=== PATIENT | female | born 1995 | race Caucasian/White ===

== ENCOUNTER 2021-09-02 12:03 | Outpatient (CLI) | payer BC, SELFPAY ==
[2021-09-02] VITALS (9 sets, daily range): BP systolic 120–139; BP diastolic 71–87; PULSE 80–94; RESP 18; TEMP 36.3; BMI 34.2
[2021-09-02 12:49] LABS: Basophils % 0.2 %; Eosinophils % 0.1 %; Hematocrit 40.4 % (37.0-47.0); Hemoglobin 14.5 g/dL (11.5-15.3); Lymphocytes # 1.2 10^3/uL (0.8-4.8); Lymphocytes % 8.8 %; Mean Corpuscular HGB Conc 35.9 g/dL (30.0-36.0); Mean Corpuscular Hemoglobin 32.4 pg (28.0-34.0); Mean Corpuscular Volume 90.2 fl (81-99); Mean Platelet Volume 11.6 fL (7.4-10.4); Monocytes # 0.4 10^3/uL (0.2-0.9); Monocytes % 2.7 %; Neutrophils # 11.98 10^3/uL (1.8-7.7); Neutrophils % 87.9 %; Nucleated Red Blood Cells % 0 %; Platelet Count 183 10^3/cmm (130-400); Red Blood Count 4.48 10^6/uL (4.1-5.3); Red Cell Distribution Width 12.6 % (12.1-15.1); White Blood Count 13.6 10^3/uL (4.0-10.0)
[2021-09-02 13:05] LABS: Add Urine Culture? No; Bacteria Urine 2+ /hpf; Bilirubin Urine 1+ (Negative); Blood Urine Neg (Negative); Glucose Urine UA Norm (Normal); Ketones Urine Negative (Negative); Leukocyte Esterase Urine 2+ (Negative); Nitrate Urine Negative (Negative); Protein Urine Trace (Negative); Specific Gravity, Urine 1.025 (1.005-1.030); Urine Appearance Hazy (CLEAR); Urine Color Dark Yellow (Yellow); Urobilinogen Urine 1 mg/dL (Negative); pH Urine 5 (5-7)
[2021-09-02 13:10] LABS: Alanine Aminotransferase < 5 U/L (0-33); Albumin Level 3.9 g/dL (3.5-5.2); Alkaline Phosphatase 116 IU/L (35-105); Aspartate Amino Transferase 16 U/L (0-32); Blood Urea Nitrogen 7 mg/dL (6-20); Calcium 9.3 mg/dL (8.5-10.5); Carbon Dioxide 17 mmol/L (22-29); Chloride 102 mmol/L (98-107); Globulin 3.6 g/dL (1.3-4.6); Glomerular Filtration Rate 150.3 mL/min (90-130); Glucose 101 mg/dL (65-115); Osmolality Calculated 278 mOsm/kg (285-295); Sodium 135 mmol/L (136-145); Total Bilirubin 0.3 mg/dL (0.15-1.2); Total Protein 7.5 g/dL (6.6-8.7); Uric Acid 4.5 mg/dL (2.4-5.7)
[2021-09-02 13:22] LABS: Urine Creatinine 295 mg/dL (28-217)
[2021-09-02 13:27] LABS: UPRO/UCREAT Ratio 0.15 mg/mg CR; Urine Protein Random 45 mg/dL
== END 2021-09-02 14:05 | disposition home or self-care (01) ==
LOC: OPOB 12:05 → OBGYN 12:40
PROVIDERS: Visit Provider Family Medicine
DX: O16.9 Unspecified maternal hypertension, unspecified trimester (principal); Z3A.00 Weeks of gestation of pregnancy not specified
CPT/HCPCS: 36415; 59025; 80053; 81001; 82570; 84156; 84550; 85025

== ENCOUNTER 2021-09-06 11:10 | Outpatient (CLI) | payer BC, SELFPAY ==
[2021-09-06 11:23] VITALS: RESP 16
[2021-09-06 11:24] VITALS: BMI 34.7
[2021-09-06 11:26] VITALS: BP 140/94; PULSE 81
[2021-09-06 11:47] VITALS: BP 123/82; PULSE 85
== END 2021-09-06 12:03 | disposition home or self-care (01) ==
LOC: OPOB 11:13 → OBGYN 11:14
PROVIDERS: Visit Provider Family Medicine
DX: O16.9 Unspecified maternal hypertension, unspecified trimester (principal); Z3A.00 Weeks of gestation of pregnancy not specified
CPT/HCPCS: 59025

== ENCOUNTER 2021-09-09 13:08 | Inpatient (IN) | payer BC, MEDICAID, SELFPAY ==
[2021-09-09] VITALS (21 sets, daily range): BP systolic 110–158; BP diastolic 59–88; PULSE 66–109; RESP 16–18; TEMP 36.6–36.7; O2SAT 99–100; BMI 35.4
[2021-09-09 12:52] LABS: Basophils % 0.2 %; Eosinophils # 0.1 10^3/uL (0.0-0.8); Eosinophils % 0.6 %; Hematocrit 41.4 % (37.0-47.0); Hemoglobin 14.7 g/dL (11.5-15.3); Lymphocytes # 2.2 10^3/uL (0.8-4.8); Lymphocytes % 18.1 %; Mean Corpuscular HGB Conc 35.5 g/dL (30.0-36.0); Mean Corpuscular Hemoglobin 32.4 pg (28.0-34.0); Mean Corpuscular Volume 91.2 fl (81-99); Mean Platelet Volume 11.7 fL (7.4-10.4); Monocytes # 0.5 10^3/uL (0.2-0.9); Monocytes % 4.3 %; Neutrophils # 9.32 10^3/uL (1.8-7.7); Neutrophils % 76.6 %; Nucleated Red Blood Cells % 0 %; Platelet Count 183 10^3/cmm (130-400); Red Blood Count 4.54 10^6/uL (4.1-5.3); Red Cell Distribution Width 12.6 % (12.1-15.1); White Blood Count 12.2 10^3/uL (4.0-10.0)
--- NOTE | 2021-09-09 12:59 | PM.OPHPUD ---
Labor & Delivery H&P Update Date of Procedure: September 09, 2021 Date H&P Performed: 09/09/21 Admission Diagnosis: IUP at 34 weeks 4 days gestation growth restriction, with reversed umbilical artery Dopplers Nonreassuring heart tones Borderline Oligohydramnios Breech presentation Other information: This is a 26-year at 34 weeks 4 days gestation with growth restriction and chronic hypertension worsening in . She presented today for routine follow-up and during evaluation of heart tones there was a deceleration from 155 into the low 90s for at least 60 seconds. Heart tones recovered only upon repositioning. Umbilical artery Dopplers were performed and found to have reversed diastolic flow. Amniotic fluid was decreased from prior and just at 5.5.
--- NOTE | 2021-09-09 13:00 | P.ANESASSM_ITS ---
Pre-Anesthetic Assessment Height/Weight: Height 1.65 m Weight 96.615 kg Pulse BP 104 H 144/79 09/09/21 13:15 09/09/21 13:15 Operation Date: 09/09/21 13:30 Proposed Procedures p Section(Not Applicable) - Ester Gonzalez MD Familial anesthetic complications: none Last intake: > 8 hrs Social No alcohol and No tobacco Exam alert, oriented x 3, clear to auscultation bilaterally and regular rate & rhythm Airway Mallampati: Class II Dentition: full Anesthetic Plan ASA status: 2 Anesthesia: Regional (specify below) Risk of > 500 ml blood loss (7ml/kg in children): Yes, adequate IV access and fluids planned Medications/Allergies Home Medications Medication Instructions Recorded Confirmed Last Taken Type Prena-Tab 1 tab PO DAILY 09/06/21 09/06/21 Unknown History Allergies Allergy/AdvReac Type Severity Reaction Status Date / Time No Known Allergies Allergy Verified 09/06/21 11:32 PFS Anesthesia Female Reproductive History : 1 Data Anesthesia : 09/09/21 12:35 09/09/21 12:35 Short CBC 09/09/21 Range/Units 12:35 WBC 12.2 H (4.0-10.0) 10^3/uL Hgb 14.7 (11.5-15.3) g/dL Hct 41.4 (37.0-47.0) % MCV 91.2 (81-99) fl Plt Count 183 (130-400) 10^3/cmm Neut % (Auto) 76.6 % Neut # (Auto) 9.32 H (1.8-7.7) 10^3/uL BMP 09/09/21 12:35 Sodium 134 L Potassium 4.0 Chloride 101 Carbon Dioxide 19 L BUN 5 L Creatinine 0.4 L Glucose 90 Calcium 9.8 Liver Function 09/09/21 Range/Units 12:35 Total Bilirubin 0.3 (0.15-1.2) mg/dL AST 13 (0-32) U/L ALT 7 (0-33) U/L Alkaline Phosphatase 113 H (35-105) IU/L Albumin 4.1 (3.5-5.2) g/dL Urine 09/09/21 Range/Units 12:30 Urine Color Yellow (Yellow) Urine Appearance Cloudy (CLEAR) Urine pH 7 (5-7) Ur Specific [place] 1.005 (1.005-1.030) Urine Protein Neg (Negative) Urine Glucose (UA) Norm (Normal) Urine Ketones Negative (Negative) Urine Nitrate Negative (Negative) Urine Bilirubin Neg (Negative) Ur Leukocyte Esterase 2+ H (Negative) Urine RBC 0-4 H (0-2) /hpf Urine WBC 25-40 H (0-5) /hpf Cardiac Studies: No Data to Display
[2021-09-09 13:04] LABS: Urine Color Yellow (Yellow)
[2021-09-09 13:05] LABS: Add Urine Microscopic? YES; Bacteria Urine 1+ /hpf; Bilirubin Urine Neg (Negative); Blood Urine 2+ (Negative); Glucose Urine UA Norm (Normal); Ketones Urine Negative (Negative); Leukocyte Esterase Urine 2+ (Negative); Nitrate Urine Negative (Negative); Protein Urine Neg (Negative); RBC Urine 0-4 /hpf (0-2); Specific Gravity, Urine 1.005 (1.005-1.030); Squamous Epithelial Cell Urine 25-40 /hpf (0-5); Urine Appearance Cloudy (CLEAR); Urobilinogen Urine Norm (Negative); WBC Urine 25-40 /hpf (0-5); pH Urine 7 (5-7)
[2021-09-09 13:19] LABS: Urine Creatinine 112 mg/dL (28-217)
[2021-09-09] MEDS: metoclopramide 5 mg/mL SDV 2 mL 10 MG IVP (13:19)
[2021-09-09] MEDS: lactated ringers 1,000 ML 999 ML (13:20)
[2021-09-09] MEDS: famotidine 20 mg/2 mL INJ IVP (13:20)
[2021-09-09] MEDS: citric acid-sodium citrate 30 mL UDC PO (13:21)
[2021-09-09 13:25] LABS: UPRO/UCREAT Ratio 0.21 mg/mg CR; Urine Protein Random 23 mg/dL
[2021-09-09 13:45] LABS: Alanine Aminotransferase 7 U/L (0-33); Albumin Level 4.1 g/dL (3.5-5.2); Alkaline Phosphatase 113 IU/L (35-105); Aspartate Amino Transferase 13 U/L (0-32); Blood Urea Nitrogen 5 mg/dL (6-20); Calcium 9.8 mg/dL (8.5-10.5); Carbon Dioxide 19 mmol/L (22-29); Chloride 101 mmol/L (98-107); Globulin 2.9 g/dL (1.3-4.6); Glomerular Filtration Rate 194.5 mL/min (90-130); Glucose 90 mg/dL (65-115); Osmolality Calculated 275 mOsm/kg (285-295); Sodium 134 mmol/L (136-145); Total Bilirubin 0.3 mg/dL (0.15-1.2)
--- NOTE | 2021-09-09 14:23 | PC.NURSE ---
FOR NON REASSURING HEART TONES, BREECH, IUGR, ABNORMAL DOPPLER STUDY ON BABY, SEE DR. PERALTA'S NOTES FOR REST.
--- NOTE | 2021-09-09 14:36 | PM.OP ---
Operative Report Date of procedure: September 09, 2021 Pre-op diagnosis: IUP at 34 weeks 4 days gestation growth restriction, with reversed umbilical artery Dopplers Nonreassuring heart tones Borderline Oligohydramnios Breech presentation Chronic hypertension, worsening in Specimens removed/disposition: Kesha breech male infant weight 1530 g, Apgars 8 and 9. Surgeon: Ester Gonzalez MD Anesthesia: Other (Spinal) Estimated blood loss (mL): 350 IV fluids (mL): 1,500 Urine output (mL): 200 Procedure: After informed consent the patient was taken to the OR where spinal anesthesia was administered. She was prepped and draped in normal sterile fashion in dorsal supine position with a left lateral tilt. A Pfannenstiel skin incision was made and carried through to the underlying layer of fascia sharply. The fascial incision was then extended laterally using the Mayos. The fascia was grasped with Shan clamps and the underlying rectus muscles were dissected off taking care to avoid injury to the underlying tissue. The peritoneum was entered bluntly using a hemostat. The incision site was manually stretched. The bladder blade was inserted and the vesicouterine peritoneum was identified and entered sharply using the Metzenbaums. The bladder flap was created digitally and the bladder blade was reinserted. Uterine incision was made in a transverse fashion in the lower uterine segment. Amniotic rupture of membranes was performed sharply and there was clear fluid. The infant was delivered in kesha breech presentation using standard breech maneuvers. The was suctioned at delivery. The cord was clamped and cut and the was handed to the waiting pediatric team. Using fundal pressure, the placenta was delivered grossly intact, small but otherwise normal to inspection. Cord pH and cord blood were obtained. A dry sponge was used to clear the uterus of clots and debris and the uterus was exteriorized from the abdomen. The uterine incision was repaired using 0 chromic in a running locked fashion. A second layer of the same suture was used in an imbricating manner. There was good hemostasis. The uterus was returned to the abdomen. The uterus had a slight heart-shape to it and was extremely small. Irrigation was used to clear the gutters of clots and debris and the uterine incision was reinspected for hemostasis. The peritoneum was then reapproximated using 4-0 Vicryl in a running fashion. The subfascial tissue was inspected for hemostasis and the fascia was then reapproximated using 0 Vicryl in a running fashion. The subcutaneous tissue was irrigated and any small bleeders were coagulated using the Bovie. The subcutaneous tissue was reapproximated using 4-0 Vicryl in a running fashion. The skin was then reapproximated using 4-0 Vicryl in a running fashion on a Harvinder needle. Steri-Strips and a pressure bandage were applied patient went to recovery in good condition. Sponge instrument and needle counts were correct.
--- NOTE | 2021-09-09 16:04 | ANE.PACU2 ---
Inpatient post-anesthesia follow up: Airway intact: Yes Vital signs: Temperature Pulse Rate 92 Respiratory Rate Blood Pressure 147/73 Pulse Oximetry Oxygen Delivery Me thod Oxygen Flow Rate Fraction of Inspir ed Oxygen Hydration adequate: Yes Nausea and vomiting: No Pain level: 2 Mental status: Baseline
[2021-09-09] MEDS: ketorolac 30 mg/mL INJ IVP (18:22)
[2021-09-09] MEDS: HYDROcodone-acetaminophen 5-325 mg Tablet PO (20:12)
[2021-09-09] MEDS: diphenhydrAMINE 50 mg/mL SDV 1mL 25 MG IVP (20:13)
[2021-09-09] MEDS: dextrose 5%-lactated ringers 1,000 ML 125 ML IV (23:00)
[2021-09-10] MEDS: ketorolac 30 mg/mL INJ IVP (00:01)
[2021-09-10 00:06] VITALS: BP 133/78; PULSE 83
[2021-09-10 02:40] VITALS: BP 119/80; PULSE 71
[2021-09-10 02:44] LABS: Hematocrit 31.6 % (37.0-47.0); Mean Corpuscular HGB Conc 34.8 g/dL (30.0-36.0); Mean Corpuscular Hemoglobin 32.5 pg (28.0-34.0); Mean Corpuscular Volume 93.5 fl (81-99); Mean Platelet Volume 11.5 fL (7.4-10.4); Platelet Count 149 10^3/cmm (130-400); Red Blood Count 3.38 10^6/uL (4.1-5.3); Red Cell Distribution Width 12.5 % (12.1-15.1)
[2021-09-10] MEDS: HYDROcodone-acetaminophen 5-325 mg Tablet PO ×3 (07:16→17:58)
[2021-09-10 09:26] VITALS: BP 107/71; PULSE 79; RESP 18; TEMP 36.7; O2SAT 98
[2021-09-10] MEDS: docusate sodium 100 mg Capsule PO ×2 (09:26→17:58)
[2021-09-10] MEDS: ibuprofen 800 mg tablet PO ×3 (09:26→21:42)
[2021-09-10] MEDS: prenatal vitamin Capsule 1 CAP PO (09:26)
--- NOTE | 2021-09-10 12:55 | PM.PN ---
Subjective Subjective: Bleeding is about like a period, ambulating, passing flatus, tolerating a regular diet, good pain control. Vitals/I&O/Wt Last Vital Signs Temp 98.0 F 09/10/21 09:26 Pulse 79 09/10/21 09:26 Resp 18 09/10/21 09:26 BP 107/71 09/10/21 09:26 Pulse Ox 98 09/10/21 09:26 09/09/21 09/10/21 09/10/21 22:59 06:59 14:59 Intake Total 1500 / 1500 400 / 400 Output Total 710 / 910 900 / 1810 1075 / 1075 Balance 790 / 590 -900 / -310 -675 / -675 Weight last 48 hrs Weight 96.615 kg Physical Exam Narrative: Alert and oriented, pupils equal round reactive to light, extraocular movements intact, lungs clear to auscultation bilaterally, heart regular rate and rhythm, patient is lying on her side and easily rolls over in bed without any discomfort, abdomen is soft and nontender, Steri-Strips are moist but in place. Incision is intact. There is nonpitting edema but no calf tenderness. Urinary Catheter Management: Pettit: Cath Placed During This Visit: yes, but has since been removed by the nurse Reason for Continuing Indwelling Catheter: Decision to DC Catheter Urinary Catheter Date of Insertion: 09/09/21 Urinary Catheter Time of Insertion: 13:40 Date Urinary Catheter Removed: 09/10/21 Time Urinary Catheter Discontinued: 05:30 Data : 09/10/21 02:33 09/09/21 12:35 A&P Assessment and plan (1) Delivery by section for breech presentation: Patient is postop day #1 for primary section secondary to growth restriction, nonreassuring heart tones, breech presentation. Mother is doing well. Continue routine postoperative care. If she is still doing well discharge home tomorrow. Status: Acute (2) Chronic hypertension complicating or reason for care during : Status: Acute Attestations Medical Necessity Statement*: Routine postoperative and care Coding Level of Care Code Acute Raw Stock Machine Loader for Chg Fwd Diagnoses Delivery by section for breech presentation O32.1XX0 Chronic hypertension complicating or reason for care during O10.919
[2021-09-10 15:33] VITALS: BP 115/73; PULSE 73; RESP 17; TEMP 36.6
[2021-09-10 21:43] VITALS: BP 108/67; PULSE 79
[2021-09-11] MEDS: HYDROcodone-acetaminophen 5-325 mg Tablet PO ×2 (01:16→10:52)
[2021-09-11] MEDS: acetaminophen 325 mg Tablet 650 MG PO (04:16)
[2021-09-11 04:18] VITALS: BP 131/84; PULSE 73; O2SAT 97
[2021-09-11] MEDS: ibuprofen 800 mg tablet PO (09:18)
[2021-09-11] MEDS: ferrous sulfate EC 325 mg Tablet PO (09:18)
[2021-09-11] MEDS: prenatal vitamin Capsule 1 CAP PO (09:18)
[2021-09-11] MEDS: docusate sodium 100 mg Capsule PO (09:18)
[2021-09-11 09:20] VITALS: BP 120/73; PULSE 96; RESP 16; TEMP 36.6
--- NOTE | 2021-09-11 09:29 | P.DS_ITS ---
Discharge Providers Date of Admission: 09/09/21 13:08 Date of Discharge: September 11, 2021 Attending Provider at Admission: Ester Gonzalez MD Attending Provider at Discharge: Ester Gonzalez MD Diagnoses at Discharge Discharge Diagnosis (1) Delivery by section for breech presentation: Status: Acute (2) Chronic hypertension complicating or reason for care during : Status: Acute Reason for Visit Reason for Visit: NST, PIH labs Hospital Course Hospital Course This is a 26-year-old G1 now P1 who was admitted from the office secondary to nonreassuring heart tones, growth restriction, reversed umbilical artery Dopplers, and breech presentation. She was 34 weeks 4 days gestation and underwent an emergent primary section. Postoperatively she did well. She was ambulating, tolerating a regular diet, had good pain control and was anxious for discharge so she could be rejoined with baby. Baby was shipped to [place] in stable condition. Physical Exam Narrative: Alert and oriented, sitting up in bed, abdomen soft and nontender, Steri-Strips are moist but intact, incision is intact, extremities have no calf tenderness, slight nonpitting edema. Urinary Catheter Management: Pettit: Cath Placed During This Visit: yes, but has since been removed by the nurse Reason for Continuing Indwelling Catheter: Decision to DC Catheter Urinary Catheter Date of Insertion: 09/09/21 Urinary Catheter Time of Insertion: 13:40 Date Urinary Catheter Removed: 09/10/21 Time Urinary Catheter Discontinued: 05:30 Discharge Data Studies Completed and Pending Laboratory Results WBC 11.0 10^3/uL (4.0-10.0) H 09/10/21 02:33 RBC 3.38 10^6/uL (4.1-5.3) L 09/10/21 02:33 Hgb 11.0 g/dL (11.5-15.3) L 09/10/21 02:33 Hct 31.6 % (37.0-47.0) L 09/10/21 02:33 MCV 93.5 fl (81-99) 09/10/21 02:33 MCH 32.5 pg (28.0-34.0) 09/10/21 02:33 MCHC 34.8 g/dL (30.0-36.0) 09/10/21 02:33 RDW 12.5 % (12.1-15.1) 09/10/21 02:33 Plt Count 149 10^3/cmm (130-400) 09/10/21 02:33 MPV 11.5 fL (7.4-10.4) H 09/10/21 02:33 Neut % (Auto) 76.6 % 09/09/21 12:35 Lymph % (Auto) 18.1 % 09/09/21 12:35 [place] % (Auto) 4.3 % 09/09/21 12:35 Eos % (Auto) 0.6 % 09/09/21 12:35 Baso % (Auto) 0.2 % 09/09/21 12:35 Neut # (Auto) 9.32 10^3/uL (1.8-7.7) H 09/09/21 12:35 Lymph # (Auto) 2.2 10^3/uL (0.8-4.8) 09/09/21 12:35 [place] # (Auto) 0.5 10^3/uL (0.2-0.9) 09/09/21 12:35 Eos # (Auto) 0.1 10^3/uL (0.0-0.8) 09/09/21 12:35 Baso # (Auto) 0.0 10^3/uL (0.0-0.1) 09/09/21 12:35 Nucleated RBC % (auto) 0 % 09/09/21 12:35 Nucleated RBCs # 0.0 /100WBC 09/09/21 12:35 Sodium 134 mmol/L (136-145) L 09/09/21 12:35 Potassium 4.0 mmol/L (3.5-5.1) 09/09/21 12:35 Chloride 101 mmol/L (98-107) 09/09/21 12:35 Carbon Dioxide 19 mmol/L (22-29) L 09/09/21 12:35 Anion Gap 18.0 (5-19) 09/09/21 12:35 BUN 5 mg/dL (6-20) L 09/09/21 12:35 Creatinine 0.4 mg/dL (0.5-0.9) L 09/09/21 12:35 GFR Calculation 194.5 mL/min (90-130) H 09/09/21 12:35 Glucose 90 mg/dL (65-115) 09/09/21 12:35 Calculated Osmolality 275 mOsm/kg (285-295) L 09/09/21 12:35 Uric Acid 4.0 mg/dL (2.4-5.7) 09/09/21 12:35 Calcium 9.8 mg/dL (8.5-10.5) 09/09/21 12:35 Total Bilirubin 0.3 mg/dL (0.15-1.2) 09/09/21 12:35 AST 13 U/L (0-32) 09/09/21 12:35 ALT 7 U/L (0-33) 09/09/21 12:35 Alkaline Phosphatase 113 IU/L (35-105) H 09/09/21 12:35 Total Protein 7.0 g/dL (6.6-8.7) 09/09/21 12:35 Albumin 4.1 g/dL (3.5-5.2) 09/09/21 12:35 Globulin 2.9 g/dL (1.3-4.6) 09/09/21 12:35 Urine Color Yellow (Yellow) 09/09/21 12:30 Urine Appearance Cloudy (CLEAR) 09/09/21 12:30 Urine pH 7 (5-7) 09/09/21 12:30 Ur Specific [place] 1.005 (1.005-1.030) 09/09/21 12:30 Urine Protein Neg (Negative) 09/09/21 12:30 Urine Glucose (UA) Norm (Normal) 09/09/21 12:30 Urine Ketones Negative (Negative) 09/09/21 12:30 Urine Blood 2+ (Negative) H 09/09/21 12:30 Urine Nitrate Negative (Negative) 09/09/21 12:30 Urine Bilirubin Neg (Negative) 09/09/21 12:30 Urine Urobilinogen Norm mg/dL (Negative) 09/09/21 12:30 Ur Leukocyte Esterase 2+ (Negative) H 09/09/21 12:30 Urine RBC 0-4 /hpf (0-2) H 09/09/21 12:30 Urine WBC 25-40 /hpf (0-5) H 09/09/21 12:30 Ur Squamous Epith Cells 25-40 /hpf (0-5) H 09/09/21 12:30 Amorphous Sediment Not Reportable 09/09/21 12:30 Urine Bacteria 1+ /hpf (NONE) H 09/09/21 12:30 U Random Total Protein 23 mg/dL 09/09/21 12:30 Urine Creatinine 112 mg/dL (28-217) 09/09/21 12:30 Protein/Creatinin Ratio 0.21 mg/mg CR 09/09/21 12:30 Vitals Last Vital Signs Temp 97.9 F 09/10/21 15:33 Pulse 73 09/11/21 04:18 Resp 17 09/10/21 15:33 BP 131/84 09/11/21 04:18 Pulse Ox 97 09/11/21 04:18 Discharge Plan Discharge Patient Disposition: Home Condition: Stable Prescriptions: New ibuprofen 800 mg Tablet 800 mg PO TID PRN (Reason: Abdominal Discomfort) Qty: 40 0RF hydrocodone-acetaminophen 5-325 mg Tablet 1 - 2 tab PO Q4H PRN (Reason: Moderate To Severe Pain) Qty: 20 0RF docusate sodium 100 mg Capsule 100 mg PO BID Qty: 60 0RF Continued Prena-Tab 1 tab PO DAILY 0RF Discharge Orders: Discharge Order (Routine); Ordered 09/11/21 Ordered By: Ester Gonzalez Referrals: Ester Gonzalez MD [Physician] - 1 week Discharge Diet: Usual diet Discharge Activity: Limit activity as instructed Patient Instructions: Depression (DC), Perineal Care (DC), Bleeding (DC), Preeclampsia and Eclampsia After Delivery (GEN), Breast Care for the Non- Mother (DC), OB - Miladis/Lisa, OB Discharge Report, OB Food/Drug Interaction Guide, OB Care at Home, Opioid Safety Activity Restrictions/Additional Instructions: Milk of Magnesia or Sweeney non-stimulant caplets for constipation. Discharge Attestations Time Spent in Discharge Care*: less than 30 min Quality Metrics Clinical Quality Measures [ No reported AMI, CVA or VTE this stay] Coding Level of Care Code Acute Chg FW DC note Diagnoses Delivery by section for breech presentation O32.1XX0 Chronic hypertension complicating or reason for care during O10.919
[2021-09-11 10:55] VITALS: BP 120/73; PULSE 96; RESP 16; TEMP 36.6
== END 2021-09-11 11:00 | disposition home or self-care (01) | DRG 787 ==
LOC: OPOB 14:18 → OBGYN 14:18
PROVIDERS: Admitting Provider Family Medicine; Visit Provider Family Medicine
PROC: 10D00Z1 Extraction of Products of Conception, Low, Open Approach (ICD-10-PCS; CPT 59514; principal; 2021-09-09 13:30)
PROC: 10D00Z1 Extraction of Products of Conception, Low, Open Approach (ICD-10-PCS; CPT 59514; 2021-09-09 13:30)
DX: O32.1XX0 Maternal care for breech presentation, not applicable or unspecified (principal); O10.02 Pre-existing essential hypertension complicating childbirth; O99.334 Smoking (tobacco) complicating childbirth; F17.210 Nicotine dependence, cigarettes, uncomplicated; O76 Abnormality in fetal heart rate and rhythm complicating labor and delivery; O40.3XX0 Polyhydramnios, third trimester, not applicable or unspecified; Z3A.34 34 weeks gestation of pregnancy; Z37.0 Single live birth
CPT/HCPCS: 36415; 51702; 59025; 80053; 81001; 82570; 84156; 84550; 85025; 85027; 99211; J0330; J0690; J1200; J1885; J2274; J2704; J2765; J3490; J7030